=== PATIENT | male | born 1990 | race Caucasian/White ===

== ENCOUNTER 2018-02-05 20:10 | Emergency (ER) | payer SELFPAY ==
[~2018-02-05] VITALS: Ht 180.3 cm; Wt 79.4 kg
[2018-02-05 21:21] VITALS: BP 136/106
[2018-02-07 10:15] LABS: TREPONEMA ANTIBODY NEGATIVE (NEGATIVE)
== END 2018-02-05 21:22 | disposition home or self-care (01) ==
LOC: EXP 20:10 → EME 20:10 → EXP 21:22
PROVIDERS: Physician Assistant
DX: R21 Rash and other nonspecific skin eruption (principal)
CPT/HCPCS: 86695 90; 86696 90; 86780; 99281; 99282